=== PATIENT | male | born 1945 ===

== ENCOUNTER 2020-10-18 05:10 | Day surgery (SDC) | payer OTHER ==
[~2020-10-18 05:10] MED LIST: D3 + K2 DOTS 11 EACH PO; LATANOPROST 0.7.5 ML OP; METFORMIN HCL750 MG PO; PRILOSEC OTC20 MG PO; REFRESH LIQUIGE15 ML OP; SIMVASTATIN40 MG PO
[2020-10-18] MEDS ORDERED: PERCOCET 5-3251 EACH PO (09:27)
== END 2020-10-18 15:00 | disposition home or self-care (01) ==
LOC: CIR.AMB 05:10
PROVIDERS: ATTEND Surgery
DX: K64.4 Residual hemorrhoidal skin tags (principal); K64.2 Third degree hemorrhoids; K64.8 Other hemorrhoids; Z20.822 Contact with and (suspected) exposure to COVID-19